=== PATIENT | female | born 1960 | race Caucasian/White ===

== ENCOUNTER 2016-04-08 08:41 | Emergency (ER) | payer BC ==
[2016-04-08] MEDS ORDERED: 0.9 % SODIUM CHLORIDE 1,000 ML IV ONE (09:10)
[2016-04-08] MEDS ORDERED: ONDANSETRON HCL/PF 4 MG/ 2ML VIAL IVP ONE (09:11)
[2016-04-08] MEDS ORDERED: KETOROLAC TROMETHAMINE 30 MG/1ML VIAL IVP ONE (09:11)
--- NOTE | 2016-04-08 10:08 | ED Physician Documentation ---
General Adult - HISTORIAN Historian: patient - HPI Stated Complaint: back pain, cough and chest congestion Chief Complaint: General Adult Onset: days ago (5) Timing: still present Severity: mild Further Comments: yes (56 yo female presents with c/o cough/congestion/body aches/low back pain. Reports history of kidney stones as well. No documented fever but has "felt sick since [place]." Has not seen her PCP to date. NO recent travel outside [facility]. No nausea/vomiting.) - ROS CONST: no problems EYES/ENT: nasal drainage, nasal congestion CVS/RESP: cough GI/: none MS/SKIN/LYMPH: back pain NEURO/PSYCH: headache - PAST HX Past History: hypertension, kidney stones Allergies/Adverse Reactions: Allergies Allergy/AdvReac Type Severity Reaction Status Date / Time codeine Allergy Verified 04/08/16 09:10 Sulfa (Sulfonamide Allergy Verified 04/08/16 09:10 Antibiotics) Home Medications: Ambulatory Orders Medication Instructions Recorded Levofloxacin [Levaquin] 500 mg PO DAILY #5 tablet 04/08/16 Lisinopril [Zestril] 10 mg PO DAILY 04/08/16 - SOCIAL HX Smoking History: non-smoker - FAMILY HX Family History: Yes - VITAL SIGNS Vital Signs: Vital Signs Temp Pulse Resp BP Pulse Ox 99.4 F 101 H 18 141/88 99 04/08/16 08:59 04/08/16 08:59 04/08/16 08:59 04/08/16 08:59 04/08/16 08:59 - REVIEWED ASSESSMENTS Nursing Assessment Reviewed: Yes Vitals Reviewed: Yes ED Results Lab/Radiology - Radiology Radiology Impressions: CT abdomen and pelvis without contrast CLINICAL HISTORY: Bilateral flank pain. Hematuria for 3 days. TECHNIQUE: CT of the abdomen and pelvis is performed without oral or intravenous administration of contrast. Sagittal and coronal reconstructions are performed by the technologist. FINDINGS: The visualized lung bases are clear. The liver and spleen demonstrate normal attenuation without focal defect. The gallbladder is normally distended. There is no pancreatic or adrenal abnormality. Kidneys are of normal size, shape and position. There is no retroperitoneal mass or significant adenopathy. Small apparent splenule is seen in the left upper quadrant. There is no evident renal or ureteral calculus and no hydronephrosis. The appendix is not identified, but there is no evidence of appendicitis. Structures related to the gastrointestinal tract are unremarkable. Uterus and adnexal structures are within normal limits. There is a small hypodense area in the cervix likely representing nabothian cyst. Pelvic calcifications are seen consistent with phleboliths. IMPRESSION: Phleboliths in the pelvis. No evident renal or ureteral calculus and no hydronephrosis. The appendix is not identified. Probable nabothian cyst in the cervix. Electronically signed on Apr 08, 2016 10:04:27 AM MATERIAL HANDLER 1ST SHIFT by: Fox Herr - Orders Orders: ED Orders Category Date Time Status RENAL STONE PROTOCOL [CT ABD & PELVIS W/O CON] Stat Exams 04/08/16 Ordered UA W/MICRO IF INDICATED Routine Lab 04/08/16 10:02 Ordered 0.9 % Sodium Chloride [Normal Saline] 1,000 ml Med 04/08/16 09:10 Active IV Q1H Ketorolac Tromethamine [Toradol] Med 04/08/16 09:11 Discontinued 30 mg IVP NOW ONE Ondansetron HCl/Pf [Zofran 4 mg/2 ml] Med 04/08/16 09:11 Discontinued 4 mg IVP NOW ONE General Adult Physical Exam - PHYSICAL EXAM GENERAL APPEARANCE: no distress EENT: eye inspection normal, ENT inspection normal, KATH, no nystagmus NECK: normal inspection RESPIRATORY: no resp distress CVS: reg rate & rhythm, heart sounds normal ABDOMEN: soft, no organomegaly, normal bowel sounds BACK: CVA tenderness (R), CVA tenderness (L), other (generalized lumbar region pain) SKIN: warm/dry NEURO: oriented X3, CN's nml as tested Discharge Clincal Impression: Cystitis Additional Instructions: Take antibiotics as prescribed Follow up with PCP in a week if no better Home Medications: Ambulatory Orders Levofloxacin [Levaquin] 500 mg PO DAILY #5 tablet 04/08/16 Lisinopril [Zestril] 10 mg PO DAILY 04/08/16 Condition: Good Disposition: 01 HOME, SELF-CARE Decision to Admit: NO Decision Time: 10:09
[2016-04-08 10:29] VITALS: BP 111/67
--- NOTE | 2016-04-09 08:38 | Diagnostic Imaging Report ---
[facility] [address] [facility] [address] [place], [place]. [address] Report Submission Date: Apr 08, 2016 10:04:27 AM IMPROVEMENT SPEC Patient Study Name: PIERCE LOUIE Date: Apr 08, 2016 9:47:33 AM IMPROVEMENT SPEC Modality Type: CT\SR Gender: F Description: CT ABD & PELVIS W/O CO : 64 Institution: [facility] Physician TATE ALVAREZ - ER CT abdomen and pelvis without contrast CLINICAL HISTORY: Bilateral flank pain. Hematuria for 3 days. TECHNIQUE: CT of the abdomen and pelvis is performed without oral or intravenous administration of contrast. Sagittal and coronal reconstructions are performed by the technologist. FINDINGS: The visualized lung bases are clear. The liver and spleen demonstrate normal attenuation without focal defect. The gallbladder is normally distended. There is no pancreatic or adrenal abnormality. Kidneys are of normal size, shape and position. There is no retroperitoneal mass or significant adenopathy. Small apparent splenule is seen in the left upper quadrant. There is no evident renal or ureteral calculus and no hydronephrosis. The appendix is not identified, but there is no evidence of appendicitis. Structures related to the gastrointestinal tract are unremarkable. Uterus and adnexal structures are within normal limits. There is a small hypodense area in the cervix likely representing nabothian cyst. Pelvic calcifications are seen consistent with phleboliths. IMPRESSION: Phleboliths in the pelvis. No evident renal or ureteral calculus and no hydronephrosis. The appendix is not identified. Probable nabothian cyst in the cervix. Electronically signed on Apr 08, 2016 10:04:27 AM IMPROVEMENT SPEC by: Fox DIMAS
== END 2016-04-08 10:15 | disposition home or self-care (01) ==
LOC: ED 08:41
DX: N30.90 Cystitis, unspecified without hematuria (principal)
CPT/HCPCS: 74176; J1885; J2405; J7030; 96374; 96375; 99283; S1016